=== PATIENT | male | born 1985 | race Caucasian/White ===

== ENCOUNTER 2022-12-06 19:40 | Inpatient (IN) | payer BC, SELFPAY ==
[2022-12-06] VITALS (11 sets, daily range): BP systolic 109–159; BP diastolic 68–94; PULSE 99–115; RESP 23–31; TEMP 37.3; O2SAT 94–100
--- NOTE | ~2022-12-06 | XR_ITS ---
EXAMINATION: XR chest 1V portable DATE: 12/06/2022 20:01 INDICATION: Pneumonia. TECHNIQUE: A single frontal view of the chest was obtained on 2 radiographs. COMPARISON: None. FINDINGS: There are lucencies in right upper lobe, consistent with emphysema. There are airspace opac ities in left lower lung zone. No pleural effusion or pneumothorax. The heart size is normal. IMPRESSION: 1. Airspace opacities in left lower lung zone, consistent with atelectasis versus pneumonia. 2. Emphysema. Reviewed, dictated and finalized at location E. IMPRESSION: 1. Airspace opacities in left lower lung zone, consistent with atelectasis vers us pneumonia. 2. Emphysema.
--- NOTE | 2022-12-06 19:39 | ECG_ITS ---
Measurements Intervals [place] Rate: 115 P: 56 AK: 122 QRS: 90 QRSD: 81 T: 57 QT: 315 QTc: 436 Interpretive Statements SINUS TACHYCARDIA ATRIAL PREMATURE COMPLEX BASELINE ARTIFACT- I, II, III, AVL ABNORMAL ECG NO PREVIOUS ECG AVAILABLE FOR COMPARISON Electronically Signed On 12-11-2022 14:57:55 CDT by Kevin Rodrigues D.O.
[2022-12-06] MEDS: IPRATROPIUM BR 0.02% INH SOLN 0.5 MG/2.5 ML VIAL 1 MG INHALATION (19:58)
[2022-12-06] MEDS: ALBUTEROL SULFATE NEB 2.5 MG/3 ML INH 10 MG INHALATION (19:58)
[2022-12-06 20:16] LABS: Glucose Point of Care 135 mg/dl (65-105)
[2022-12-06 20:18] LABS: Basophils Absolute Auto 0.1 K/mm3 (0.0-0.1); Basophils Percent Auto 0.7 % (0.2-1.2); Eosinophils Percent Auto 0.2 % (0-4.4); Hematocrit 48.5 % (42.0-52.0); Hemoglobin 15.7 g/dL (14.0-18.0); Immature Granulocyte Absolute 0.71 K/mm3 (0.00-0.031); Immature Granulocyte Percent A 4.7 % (0-0.5); Lymphocytes Absolute Auto 2.62 K/mm3 (0.9-3.2); Lymphocytes Percent Auto 17.2 % (18.3-44.2); Mean Corpuscular HGB Conc 32.4 g/dl (32-36); Mean Corpuscular Hemoglobin 31.9 pg (26-34); Mean Corpuscular Volume 98.6 fl (80-100); Monocytes Absolute Auto 1.2 K/mm3 (0.1-0.6); Monocytes Percent Auto 7.6 % (2.6-8.5); Neutrophils Absolute Auto 10.6 K/mm3 (1.3-6.7); Neutrophils Percent Auto 69.6 % (45.5-73.1); Nucleated Red Blood Cells Absolute Auto 0.1 K/mm3 (0.0-0.012); Nucleated Red Blood Cells Perc 0.4 % (0.0-0.2); Platelet Count Result 277 k/mm3 (150-375); Red Blood Count 4.92 M/mm3 (4.6-6.20); Red Cell Distribution Width 14.5 % (11.5-14.5); White Blood Count 15.2 K/mm3 (4.5-10.0)
[2022-12-06] MEDS: SODIUM CHLORIDE 0.9% IV 2,000 ML 999 ML IV CONT (20:23)
[2022-12-06] MEDS: CEFEPIME 2 GM/NS 50 ML 2 GM/50 ML BAG IVPB (20:25)
[2022-12-06 20:29] LABS: INR 0.9; Partial Thromboplastin Time 27.4 SECONDS (22.3-36.8)
[2022-12-06 20:30] LABS: Alanine Aminotransferase 63 U/L (6-50); Albumin Level 3.8 g/dL (3.5-5.1); Alkaline Phosphatase 75 U/L (38-126); Aspartate Amino Transferase 32 U/L (17-59); Bilirubin,Total 0.8 mg/dL (0.2-1.3); Blood Urea Nitrogen 20 mg/dL (9-20); Calcium 8.3 mg/dL (8.4-10.2); Carbon Dioxide > 40 mmol/L (22-30); Chloride 89 mmol/L (98-107); Estimated CRCL calculation 150 ml/min; Estimated Glomerular Filt Rate > 60; Glucose 132 mg/dL (65-110); Lipase 63 U/L (23-300); Magnesium 2.1 mg/dL (1.6-2.3); Potassium 3.6 mmol/L (3.4-5.0); Sodium 135 mmol/L (137-145)
[2022-12-06] MEDS: Please add drug allergy info to patient profile. 1 EACH XX (20:31)
[2022-12-06 20:41] LABS: NT Pro B Type Natriuretic Pept 840 pg/mL (19.9-100); Troponin I 0.018 ng/mL (0.000-0.034)
[2022-12-06 20:53] LABS: Influenza A QL RT-PCR Negative (Negative); Influenza B QL RT-PCR Negative (Negative); RSV RNA, RT-PCR Negative (Negative); SARS-CoV-2 RNA PCR Negative (Negative)
--- NOTE | 2022-12-06 21:06 | ED.GENADULT ---
HPI - General Adult General Chief complaint: Shortness of Breath/Dyspnea Stated complaint: DIFFICULTY IN BREATHING History of Present Illness HPI narrative: This is a 37-year-old male with bronchopulmonary dysplasia presenting for difficulty breathing. Patient says that he was placed in a hotel that smelled of mold proximally 1 week ago. He then was hospitalized in [place] for 2 days where he was treated for pneumonia. He was discharged on antibiotics and steroids, neither of which he filled or has taken. Patient called EMS for difficulty breathing today. He was found to be 42% on room air. He improved with 6 L nasal cannula. At this time the patient is denying any complaints outside of shortness of breath. Related Data Allergies Allergy/AdvReac Type Severity Reaction Status Date / Time No Known Allergies Allergy Verified 12/06/22 20:23 [facility] Past Medical History Medical History H/O bronchopulmonary dysplasia HTN (hypertension) Exam Narrative: APPEARANCE: appears uncomfortable Head: atraumatic. EYES: EOMI, NOSE: Atraumatic NECK: Trachea midline RESPIRATORY: Tachypneic, scattered wheezing, scattered rhonchi, end-expiratory grunting, CARDIOVASCULAR: RRR, no pitting edema ABDOMINAL: obese, nontender no guarding or rebound MUSCULOSKELETAl: No obvious deformities NEURO: Alert. Moving 4/4 extremities SKIN:: Warm, dry. Normal color PSYCHIATRIC: Normal affect Course Vital Signs Vital signs: Vital Signs Temperature 99.2 F 12/06/22 19:35 Pulse Rate 112 H 12/06/22 19:35 Respiratory Rate 31 H 12/06/22 19:35 Blood Pressure 159/94 H 12/06/22 19:35 Pulse Oximetry 94 12/06/22 19:35 Oxygen Delivery Nasal Cannula 12/06/22 19:35 Oxygen Flow Rate 4 12/06/22 19:35 Temperature 99.2 F 12/06/22 19:35 Pulse Rate 99 12/06/22 21:31 Respiratory Rate 30 H 12/06/22 21:31 Blood Pressure 109/68 12/06/22 21:31 Pulse Oximetry 100 12/06/22 21:31 Oxygen Delivery BiPAP 12/06/22 20:30 Oxygen Flow Rate 4 12/06/22 19:50 Medical Decision Making [facility] Narrative Medical decision making narrative: -Course: 37-year-old male with bronchopulmonary dysplasia presenting for shortness of breath after being diagnosed with pneumonia and not filling his antibiotics. On arrival patient was tachypneic with end-expiratory grunting. He is placed on BiPAP and given hour long DuoNeb treatment. Drip score 4. He will be started on cefepime azithromycin and vanco. Patient will be admitted the hospital for further management. 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 -Independent interpretation of studies: White count 15, metabolic panel shows a CO2 retention pattern. Initial troponin 0.018, BNP 840. Viral swabs negative. Chest x-ray shows left lower lobe pneumonia. Independent EKG interpretation: Rhythm [sinus], Rate [115], [place] -[normal], [place] -[normal], QRS [narrow], QTC [normal], T waves -[negative for concerning inversions], ST Segments - [Negative for concerning elevations] Final interpretations: sinus tachycardia -Discussion of Management/Consultants:Irina- Hospitalist -Interventions: BiPAP, 1 hour DuoNeb, 10 mg dexamethasone, cefepime, azithromycin, vancomycin, 2 L normal saline -Shared decision making / Disposition: patient will be admitted to the IMU for further management of his acute on chronic respiratory failure + PNA. Vital Signs Vital Signs: Vital Signs Temperature 99.2 F 12/06/22 19:35 Pulse Rate 112 H 12/06/22 19:35 Respiratory Rate 31 H 12/06/22 19:35 Blood Pressure 159/94 H 12/06/22 19:35 Pulse Oximetry 94 12/06/22 19:35 Oxygen Deliver
[2022-12-06] MEDS: AZITHROMYCIN 500 MG/NS 250 ML 500 MG/250 ML BAG 250 MG IVPB (21:09)
[2022-12-06 21:26] LABS: Appearance Urine Clear (Clear); Bacteria Urine None Seen /hpf; Bilirubin Urine Negative (Negative); Blood Urine Negative (Negative); Color Urine Yellow (Yellow); Glucose Urine UA Negative (Negative); Ketones Urine Negative (Negative); Leukocyte Esterase Ur Negative LEU/UL (Negative); Nitrate Urine Negative (Negative); Non Pathogenic Casts 0-2; Protein Urine Trace mg/dL (Negative); RBC Urine 0-2 /hpf (0-2); Squamous Epithelial Cell Urine None seen /hpf (Few); WBC Urine 0-5 /hpf; pH Urine 7.5 (5.0-9.0)
[2022-12-06 21:36] LABS: Add Urine Microscopic? YES
[2022-12-06 21:37] LABS: Amphetamine Screen Urine Negative (Negative); Barbiturate Screen Urine Negative (Negative); Benzodiazepines Screen Urine Negative (Negative); Cannabinoid Screen Urine Negative (Negative); Cocaine Screen Urine Negative (Negative); Methadone Screen Urine Negative (Negative); Opiate Screen Urine Negative (Negative); Phencyclidine Screen Urine Negative (Negative)
[2022-12-06] MEDS: VANCOMYCIN 1,250 MG/NS 250 ML 1,250 MG/250 ML BAG 166.67 MG IVPB (22:08)
[2022-12-06 22:51] LABS: Alveolar/Arterial O2 Gradient 128.1 mmHg; Base Excess ABG 11.5 mEq/l (+/-2.0); Fractional Inspired Oxygen 60 %; Oxygen Content ABG 21.2 %vol (16.0-22.0); Oxygen Saturation ABG 99.4 % (95.0-100.0); Oxyhemoglobin 95.1 % THb (90.0-100.0); PO2 ABG 224.1 mmHg (80.0-100.0); PO2 FiO2 Ratio Arterial Blood 3.74 %; Total Hemoglobin 15.5 g/dL (12.0-18.0); pH ABG 7.383 (7.350-7.450)
[2022-12-06 22:55] LABS: PCO2 ABG 68.7 mmHg (35.0-45.0)
[2022-12-06 22:56] LABS: Device NON-INVASIVE VENT; Modified Allen's Test Pass; Non-Invasive Vent Rate 12 /MIN; Site Drawn LEFT RADIAL
[2022-12-06 22:57] LABS: Non-Invasive Expiratory Pressure 5 CMH2O; Non-Invasive Inspiratory Pressure 15 CMH2O
[2022-12-07] VITALS (31 sets, daily range): BP systolic 125–150; BP diastolic 60–83; PULSE 59–105; RESP 14–30; TEMP 36.2–36.8; O2SAT 95–100; BMI 42.6
[2022-12-07 00:02] LABS: Troponin I 0.016 ng/mL (0.000-0.034)
[2022-12-07] MEDS: VANCOMYCIN 1,250 MG/NS 250 ML 1,250 MG/250 ML BAG 166.67 MG IVPB (00:49)
--- NOTE | 2022-12-07 01:57 | ADMGEN ---
This patient, Kelli Paredes, was admitted to IMU Room 210-01 on 12/07/2022 at 0135. Patient/family oriented to hospital policies and general routines including ID bracelet, bed and alarms, visiting hours, pain management, procedures, bathroom and other care routines, personal items, smoking policy, room service/diet, and visiting hours. Information on how to activate the Rapid Response Team has been discussed. Patient/Family are encouraged to report perceived risks to care and to ask questions if they do not understand what they are told or what they should do.
[2022-12-07] MEDS: IPRATROPIUM BR 0.02% INH SOLN 0.5 MG/2.5 ML VIAL INHALATION ×4 (02:13→20:25)
[2022-12-07] MEDS: ALBUTEROL SULFATE NEB 2.5 MG/3 ML INH INHALATION (02:13)
--- NOTE | 2022-12-07 04:00 | PC.NURSE ---
Patient uses [facility] [address], [address] [place] [address].
[2022-12-07] MEDS: CEFEPIME 2 GM/NS 50 ML 2 GM/50 ML BAG IVPB ×3 (05:46→21:03)
--- NOTE | 2022-12-07 05:54 | PM.IMHP ---
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 When EMS arrived to the patient's 0 tele satting 42% required 6 L nasal cannula to bring oxygen saturations up to the mid 90s. The patient was still having increased work of breathing on arrival to the ER was placed on BiPAP. The patient reports that he was just hospitalized at in [place] about a week ago. He thought that his respiratory symptoms at that time was due to being exposed to mold in the hotel. When he was admitted to the hospitalist told he had pneumonia he was kept for 2 days and then discharged. He reported that he felt like they were brushing him out of the hospital in felt that the antibiotics that they prescribed him in the steroids they prescribed him would not help. He stated that he was discharged urine 18:00 and was unable to pick the medications up from that pharmacy in left down without the medications. He stated that he did not want to pick them up anyway because he was commenced they would not help. His x-ray on arrival to the ER demonstrated left lower lobe atelectasis versus pneumonia. He had a mildly elevated temperature 99.2?. He had mild leukocytosis. He denies having any fevers or chills. At the time my evaluation the patient was profusely diaphoretic. He has a markedly crowded posterior oropharynx. He reports that when he was tested for sleep apnea about 20 years ago he did not have sleep apnea but he has not had a repeat sleep study since that time. He follows with a organ pipe maker metal in [facility] which was right across the [place] from his home in [place]. Cannot name his organ pipe maker metal. He states that his primary care physician is Hannah Wolf. Looking at his medication history it does not look like the patient has been refilling his medications on a regular basis. He states he has not been back to his home base in many months in his rarely at home. He has been having a nonproductive cough. He denies ever having smoked. He does chew tobacco on a daily basis. He denies any known recent ill contacts. Review of Systems Review of Systems: 12 systems were reviewed with pertinent positives and negatives per HPI. Except as documented in the HPI, all other systems were reviewed and are negative. [facility] Past Medical History Medical History Chewing tobacco nicotine dependence H/O bronchopulmonary dysplasia HTN (hypertension) Morbid obesity with BMI of 40.0-44.9, adult Surgical History Surgical History Status post open reduction with internal fixation of fracture (~2005) Facial fractures Family History Family History Father Hypertension Grandparent Diabetes mellitus Sibling Depression Social History Social History (Updated 12/07/22 @ 07:32 by Sylvia Arevalo DO) Social History: He is from [place]. He receives his medical care in [facility]. 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 He has been with his current girlfriend who is at bedside who is he refers to as his for the last 2 years. He denies illicit substance use. He never drinks alcohol. He is a lifelong nonsmoker. Code status: Full code Smoking status: Never smoker Smokeless tobacco user: chewing tobacco Alcohol intake: never Substance use: never Substance use type: does not use Lack of Transportation: No Lack of Food: Never True Current Housing: I Have Housing Concerned About Future Housing: No Difficulty Paying Gas/Electric Bills: No Difficulty Paying for Meds: No Currently Unemployed: No
[2022-12-07 06:02] LABS: Estimated CRCL calculation 148 ml/min; Estimated Glomerular Filt Rate > 60
[2022-12-07 07:41] LABS: Basophils Absolute Auto 0.1 K/mm3 (0.0-0.1); Basophils Percent Auto 0.6 % (0.2-1.2); Hematocrit 45.8 % (42.0-52.0); Hemoglobin 14.6 g/dL (14.0-18.0); Immature Granulocyte Absolute 0.64 K/mm3 (0.00-0.031); Immature Granulocyte Percent A 5.5 % (0-0.5); Lymphocytes Absolute Auto 1.11 K/mm3 (0.9-3.2); Lymphocytes Percent Auto 9.5 % (18.3-44.2); Mean Corpuscular HGB Conc 31.9 g/dl (32-36); Mean Corpuscular Hemoglobin 31.9 pg (26-34); Mean Corpuscular Volume 100.2 fl (80-100); Mean Platelet Volume 9.6 fl (7.4-10.4); Monocytes Absolute Auto 0.5 K/mm3 (0.1-0.6); Monocytes Percent Auto 3.8 % (2.6-8.5); Neutrophils Absolute Auto 9.4 K/mm3 (1.3-6.7); Neutrophils Percent Auto 80.6 % (45.5-73.1); Nucleated Red Blood Cells Perc 0.2 % (0.0-0.2); Platelet Count Result 266 k/mm3 (150-375); Red Blood Count 4.57 M/mm3 (4.6-6.20); Red Cell Distribution Width 14.2 % (11.5-14.5); White Blood Count 11.7 K/mm3 (4.5-10.0)
[2022-12-07 08:13] LABS: Blood Urea Nitrogen 18 mg/dL (9-20); Calcium 7.7 mg/dL (8.4-10.2); Carbon Dioxide > 40 mmol/L (22-30); Chloride 92 mmol/L (98-107); Estimated CRCL calculation 148 ml/min; Estimated Glomerular Filt Rate > 60; Glucose 195 mg/dL (65-110); Potassium 4.5 mmol/L (3.4-5.0); Sodium 134 mmol/L (137-145)
[2022-12-07] MEDS: ALBUTEROL SULFATE NEB 2.5 MG/3 ML INH 5 MG INHALATION ×3 (08:34→20:25)
[2022-12-07] MEDS: NEBIVOLOL HCL 5 MG TABLET 10 MG PO (09:21)
--- NOTE | 2022-12-07 09:21 | PM.IMPN ---
Progress Note: A&P Assessment and Plan (1) Pneumonia: Qualifiers: Laterality: left Lung location: lower lobe of lung Pneumonia type: due to unspecified organism Qualified Code(s): J18.9 - Pneumonia, unspecified organism Code(s): J18.9 - Pneumonia, unspecified organism Status: Acute (2) Respiratory failure, acute and chronic: Qualifiers: Respiratory failure complication: hypoxia and hypercapnia Qualified Code(s): J96.21 - Acute and chronic respiratory failure with hypoxia; J96.22 - Acute and chronic respiratory failure with hypercapnia Code(s): J96.20 - Acute and chronic respiratory failure, unspecified whether with hypoxia or hypercapnia Status: Acute (3) Sepsis: Qualifiers: Acute respiratory failure type: with hypoxia Sepsis acute organ dysfunction status: with acute organ dysfunction Sepsis type: sepsis due to unspecified organism Severe sepsis acute organ dysfunction type: acute respiratory failure Severe sepsis shock status: without septic shock Qualified Code(s): A41.9 - Sepsis, unspecified organism; R65.20 - Severe sepsis without septic shock; J96.01 - Acute respiratory failure with hypoxia Code(s): A41.9 - Sepsis, unspecified organism Status: Acute (4) Morbid obesity with BMI of 40.0-44.9, adult: Code(s): E66.01 - Morbid (severe) obesity due to excess calories; Z68.41 - Body mass index [BMI] 40.0-44.9, adult Status: Acute (5) Chewing tobacco nicotine dependence: Qualifiers: Substance use status: uncomplicated Qualified Code(s): F17.220 - Nicotine dependence, chewing tobacco, uncomplicated Code(s): F17.220 - Nicotine dependence, chewing tobacco, uncomplicated Status: Acute (6) HTN (hypertension): Qualifiers: Hypertension type: primary hypertension Qualified Code(s): I10 - Essential (primary) hypertension Code(s): I10 - Essential (primary) hypertension Status: Acute (7) H/O bronchopulmonary dysplasia: Code(s): Z87.09 - Personal history of other diseases of the respiratory system Status: Acute (8) Nonadherence to medical treatment: Code(s): Z91.199 - Patient's noncompliance with other medical treatment and regimen due to unspecified reason Status: Acute Plan Community-acquired pneumonia Patient has dyspnea, productive cough X-ray shows left lower lobe pneumonia Patient on cefepime, azithromycin and vancomycin Sepsis Sepsis criteria met with leukocytosis, tachypnea, tachycardia in the setting of pneumonia. The patient did have some lactic acidosis which is resolved. Patient was started on cefepime azithromycin and vancomycin per antibiotic stewardship guidelines for severe pneumonia. Blood cultures pending. Patient did receive Decadron in the ER for his acute respiratory failure. He has diffuse wheezing bilaterally. Was on BiPAP for several hours before ABG was obtained in the ER. Currently is ABG looks well compensated. There may have been acute component to his hypercapnic respiratory failure that may have resolved by the time the ABG was obtained. Will continue patient on steroid therapy with Solu-Medrol 60 mg q.8 hours. COPD exacerbation Patient has a history of emphysematous changes on imaging likely due to his history of bronchopulmonary dysplasia. This is likely playing a component in his hypercapnic respiratory failure. Possible superimposed with obesity hypoventilation syndrome and underlying obstructive sleep apnea he has not been tested for sleep apnea since he has gained significant amount of weight as an adult. Consult dental manager Migel as needed for edema but he denies history of heart failure. Follow echocardiogram Patient does use chewing tobacco on a daily basis. not interested in nicotine cessation information. He is not interested in nicotine supplements at this time. He has been informed that he cannot chew tobacco
[2022-12-07] MEDS: hydroCHLOROthiazide 25 MG TABLET PO (09:22)
[2022-12-07] MEDS: ZAFIRLUKAST 20 MG TABLET PO ×2 (09:22→17:42)
[2022-12-07] MEDS: methylPREDNISolone SOD SUCC 125 MG VIAL 60 MG IV PUSH ×2 (16:00→21:16)
[2022-12-07] MEDS: AZITHROMYCIN 500 MG/NS 250 ML 500 MG/250 ML BAG 250 MG IVPB (21:03)
[2022-12-07] MEDS: NYSTATIN 100,000 UNITS/ML SUSP 5 ML ORAL.SUSP PO (21:04)
[2022-12-08] VITALS (25 sets, daily range): BP systolic 121–141; BP diastolic 59–78; PULSE 56–104; RESP 18–24; TEMP 36.2–36.9; O2SAT 81–99
[2022-12-08] MEDS: ALBUTEROL SULFATE NEB 2.5 MG/3 ML INH 5 MG INHALATION ×4 (02:33→20:09)
[2022-12-08] MEDS: IPRATROPIUM BR 0.02% INH SOLN 0.5 MG/2.5 ML VIAL INHALATION ×4 (02:33→20:10)
[2022-12-08 05:43] LABS: Estimated CRCL calculation 128 ml/min; Estimated Glomerular Filt Rate > 60
[2022-12-08] MEDS: methylPREDNISolone SOD SUCC 125 MG VIAL 60 MG IM ×2 (06:34→17:36)
[2022-12-08] MEDS: ZAFIRLUKAST 20 MG TABLET PO (06:35)
--- NOTE | 2022-12-08 08:42 | PM.IMPN ---
Progress Note: A&P Assessment and Plan (1) Pneumonia: Qualifiers: Laterality: left Lung location: lower lobe of lung Pneumonia type: due to unspecified organism Qualified Code(s): J18.9 - Pneumonia, unspecified organism Code(s): J18.9 - Pneumonia, unspecified organism Status: Acute (2) Respiratory failure, acute and chronic: Qualifiers: Respiratory failure complication: hypoxia and hypercapnia Qualified Code(s): J96.21 - Acute and chronic respiratory failure with hypoxia; J96.22 - Acute and chronic respiratory failure with hypercapnia Code(s): J96.20 - Acute and chronic respiratory failure, unspecified whether with hypoxia or hypercapnia Status: Acute (3) Sepsis: Qualifiers: Acute respiratory failure type: with hypoxia Sepsis acute organ dysfunction status: with acute organ dysfunction Sepsis type: sepsis due to unspecified organism Severe sepsis acute organ dysfunction type: acute respiratory failure Severe sepsis shock status: without septic shock Qualified Code(s): A41.9 - Sepsis, unspecified organism; R65.20 - Severe sepsis without septic shock; J96.01 - Acute respiratory failure with hypoxia Code(s): A41.9 - Sepsis, unspecified organism Status: Acute (4) Morbid obesity with BMI of 40.0-44.9, adult: Code(s): E66.01 - Morbid (severe) obesity due to excess calories; Z68.41 - Body mass index [BMI] 40.0-44.9, adult Status: Acute (5) Chewing tobacco nicotine dependence: Qualifiers: Substance use status: uncomplicated Qualified Code(s): F17.220 - Nicotine dependence, chewing tobacco, uncomplicated Code(s): F17.220 - Nicotine dependence, chewing tobacco, uncomplicated Status: Acute (6) HTN (hypertension): Qualifiers: Hypertension type: primary hypertension Qualified Code(s): I10 - Essential (primary) hypertension Code(s): I10 - Essential (primary) hypertension Status: Acute (7) H/O bronchopulmonary dysplasia: Code(s): Z87.09 - Personal history of other diseases of the respiratory system Status: Acute (8) Nonadherence to medical treatment: Code(s): Z91.199 - Patient's noncompliance with other medical treatment and regimen due to unspecified reason Status: Acute Plan Community-acquired pneumonia Patient has dyspnea, productive cough X-ray shows left lower lobe pneumonia Patient on cefepime, azithromycin and vancomycin Sepsis Sepsis criteria met with leukocytosis, tachypnea, tachycardia in the setting of pneumonia. The patient did have some lactic acidosis which is resolved. Patient was started on cefepime azithromycin and vancomycin per antibiotic stewardship guidelines for severe pneumonia. Blood cultures pending. Patient did receive Decadron in the ER for his acute respiratory failure. He has diffuse wheezing bilaterally. Was on BiPAP for several hours before ABG was obtained in the ER. Currently is ABG looks well compensated. There may have been acute component to his hypercapnic respiratory failure that may have resolved by the time the ABG was obtained. Continue with Solu-Medrol 60 mg q.8 hours. Patient is afebrile, leukocytosis is trending down. COPD exacerbation Patient has a history of emphysematous changes on imaging likely due to his history of bronchopulmonary dysplasia. This is likely playing a component in his hypercapnic respiratory failure. Possible superimposed with obesity hypoventilation syndrome and underlying obstructive sleep apnea he has not been tested for sleep apnea since he has gained significant amount of weight as an adult. Consult fireproof door maker Migel as needed for edema but he denies history of heart failure. Follow echocardiogram Patient does use chewing tobacco on a daily basis. not interested in nicotine cessation information. He is not interested in nicotine supplements at this time. He has been informed that he
[2022-12-08] MEDS: NEBIVOLOL HCL 5 MG TABLET 10 MG PO (09:30)
[2022-12-08] MEDS: hydroCHLOROthiazide 25 MG TABLET PO (09:31)
[2022-12-08] MEDS: NYSTATIN 100,000 UNITS/ML SUSP 5 ML ORAL.SUSP PO ×4 (09:31→21:07)
[2022-12-08] MEDS: CEFEPIME 2 GM/NS 50 ML 2 GM/50 ML BAG IVPB ×2 (09:42→17:30)
--- NOTE | 2022-12-08 19:15 | PM.CNPUL ---
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 ABG 7.383, pCo2 68.7, pO2 224 on 60%, HCO3 40, sat 99%. Has underlying emphysema visible on CXR. He has Trelegy inhaler with him, one puff left in a container and another full one available. He has albuterol inhaler with him. (2) Pneumonia: Qualifiers: Laterality: left Lung location: lower lobe of lung Pneumonia type: due to unspecified organism Qualified Code(s): J18.9 - Pneumonia, unspecified organism Code(s): J18.9 - Pneumonia, unspecified organism Status: Acute Assessment and Plan: He has community acquired pneumonia, partially treated; this diagnosis is based on clinical and radiographic date; productive cough, shortness of breath, increased O2 requirement, admitted with saturation 46% with confusion, shock, increased lactic acid on admission Dec 06. He was managed with Decadron, BiPAP 15/5 and O2 @ 60% , weaned down to 1 L/min. WBC is decreasing, now 11.7 K. 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 He has POC in his truck, O2 concentrator at home, has a Trilogy NPPV at home, and likes the mask that he had here. He can take this home, use it with his Trilogy at home. Plan He is significantly improved, should be ready to go home tomorrow. His home is a [address] from here[address] His is going to drive. They have a portable O2 concentrator that has capability to go to 4-5 L/min. He has not been able to wean off O2 today; on room air 88%. He says he is 90% better compared to his condition at admission. His nurse attests to his improvement. He will comply with getting antibiotics and prednisone at a [facility] or other pharmacy before [facility] tomorrow to avoid repeat deterioration on the road. Goal with O2 is saturation 90-94% while using O2. He does not observe medical recommendations such as using O2 when needed, does not want to go on disability or take anything from the government. Has a pulmonary doctor at home. History of Present Illness History of Present Illness Consult date: 12/08/22 Chief complaint: PNA Narrative: Dec 08, 2022 18:40; history kindly supplemented by his , Lori, and his RN, Bo. The patient is not in the mood for an interview. NEW: Kelli Paredes is a 37 yo male never smoker with abnormal lung function due to bronchopulmonary dysplasia, born 3 months early; he was not disabled and did not have significant problems with his breathing until 2018 when he developed frequent pneumonia. At home in [place], he has O2 and Trilogy nppv. In the last year since receiving his Trilogy, he has only used it a handful of time. He does not like the large mask on his home machine. 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 He is from [place], was
[2022-12-08] MEDS: methylPREDNISolone SOD SUCC 125 MG VIAL 60 MG IV PUSH (21:02)
[2022-12-08] MEDS: AZITHROMYCIN 500 MG/NS 250 ML 500 MG/250 ML BAG 250 MG IVPB (21:08)
[2022-12-09] VITALS (16 sets, daily range): BP systolic 125–147; BP diastolic 67–72; PULSE 59–125; RESP 16–21; TEMP 36.8; O2SAT 83–99
[2022-12-09] MEDS: CEFEPIME 2 GM/NS 50 ML 2 GM/50 ML BAG IVPB (01:32)
[2022-12-09] MEDS: ALBUTEROL SULFATE NEB 2.5 MG/3 ML INH 5 MG INHALATION ×2 (02:32→08:34)
[2022-12-09] MEDS: IPRATROPIUM BR 0.02% INH SOLN 0.5 MG/2.5 ML VIAL INHALATION ×2 (02:32→08:35)
[2022-12-09] MEDS: methylPREDNISolone SOD SUCC 125 MG VIAL 60 MG IV PUSH (06:27)
[2022-12-09] MEDS: ZAFIRLUKAST 20 MG TABLET PO (06:28)
--- NOTE | 2022-12-09 08:31 | PM.DS ---
DS: Admitting Diagnosis Discharge Date today Admitting Diagnosis Pneumonia COPD exacerbation Sepsis Acute on chronic respiratory failure DS: Discharge Diagnosis Discharge Diagnosis (1) Sepsis: Qualifiers: Acute respiratory failure type: with hypoxia Sepsis acute organ dysfunction status: with acute organ dysfunction Sepsis type: sepsis due to unspecified organism Severe sepsis acute organ dysfunction type: acute respiratory failure Severe sepsis shock status: without septic shock Qualified Code(s): A41.9 - Sepsis, unspecified organism; R65.20 - Severe sepsis without septic shock; J96.01 - Acute respiratory failure with hypoxia Code(s): A41.9 - Sepsis, unspecified organism Status: Acute (2) Chewing tobacco nicotine dependence: Qualifiers: Substance use status: uncomplicated Qualified Code(s): F17.220 - Nicotine dependence, chewing tobacco, uncomplicated Code(s): F17.220 - Nicotine dependence, chewing tobacco, uncomplicated Status: Acute (3) Morbid obesity with BMI of 40.0-44.9, adult: Code(s): E66.01 - Morbid (severe) obesity due to excess calories; Z68.41 - Body mass index [BMI] 40.0-44.9, adult Status: Acute (4) Community acquired pneumonia due to influenza A virus: Code(s): J09.X1 - Influenza due to identified novel influenza A virus with pneumonia Status: Acute (5) COPD exacerbation: Code(s): J44.1 - Chronic obstructive pulmonary disease with (acute) exacerbation Status: Acute (6) Pneumonia: Qualifiers: Laterality: left Lung location: lower lobe of lung Pneumonia type: due to unspecified organism Qualified Code(s): J18.9 - Pneumonia, unspecified organism Code(s): J18.9 - Pneumonia, unspecified organism Status: Acute DS: Summary Hospital Course Hospital Course: Per H&P, 37-year-old male with a past medical history of 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 When EMS arrived to the patient's 0 tele satting 42% required 6 L nasal cannula to bring oxygen saturations up to the mid 90s.? The patient was still having increased work of breathing on arrival to the ER was placed on BiPAP.? The patient reports that he was just hospitalized at in [place] about a week ago.? He thought that his respiratory symptoms at that time was due to being exposed to mold in the hotel.? When he was admitted to the hospitalist told he had pneumonia he was kept for 2 days and then discharged.? He reported that he felt like they were brushing him out of the hospital in felt that the antibiotics that they prescribed him in the steroids they prescribed him would not help.? He stated that he was discharged urine 18:00 and was unable to pick the medications up from that pharmacy in left down without the medications.? He stated that he did not want to pick them up anyway because he was commenced they would not help.? His x-ray on arrival to the ER demonstrated left lower lobe atelectasis versus pneumonia.? He had a mildly elevated temperature 99.2?.? He had mild leukocytosis.? He denies having any fevers or chills.? At the time my evaluation the patient was profusely diaphoretic.? He has a markedly crowded posterior oropharynx.? He reports that when he was tested for sleep apnea about 20 years ago he did not have sleep apnea but he has not had a repeat sleep study since that time.? He follows with a postulant in [facility] which was right across the [place] from his home in [place].? Cannot name his postulant.? He states that his primary care physician is Hannah Wolf.? Looking at his medication history it does not look like the patient has been refilling his medications on a regular basis.? He states he has not been back to his home base in many months in his rarely at home. The following medication
[2022-12-09 09:39] LABS: Estimated CRCL calculation 146 ml/min; Estimated Glomerular Filt Rate > 60
--- NOTE | 2022-12-09 09:39 | HOMEO2EVAL ---
Evaluation was performed at [facility] Home Oxygen Evaluation RC: Home Oxygen (O2) Evaluation Start: 12/09/22 09:09 Freq: ONCE Status: Active Protocol: RPE Activity Type Activity Date Activity User E-sign Co-sign Detail Recorded Client Recorded Date Recorded By Document 12/09/22 09:15 CLC [email or web address] 12/09/22 09:39 CLC Document 12/09/22 09:18 CLC [email or web address] 12/09/22 09:39 CLC Document 12/09/22 09:20 CLC [email or web address] 12/09/22 09:39 CLC Document 12/09/22 09:22 CLC [email or web address] 12/09/22 09:39 CLC Document 12/09/22 09:24 CLC [email or web address] 12/09/22 09:39 CLC 12/09/22 12/09/22 12/09/22 09:15 09:18 09:20 Home O2 Evaluation [Oxygen] -Test Phase Resting Exercise Exercise -Oxygen Delivery Room Air Room Air Nasal Cannula -Oxygen Flow Rate (L/min) 2 [Pulse Oximetry] -Pulse Oximetry (90-100 %) 94 87 L 83 L [Pulse Rate] -Pulse Rate (60-100 beats/min) 114 H 118 H 125 H [Evaluation] -Activity Tolerance Excellent Excellent [Exercise] -Ambulation Distance (feet) 200 -Ambulation Distance (meters) 60.95 [Charges] -Treatment Charges O2 Evaluation - Inpatient 12/09/22 12/09/22 09:22 09:24 Home O2 Evaluation [Oxygen] -Test Phase Exercise Exercise -Oxygen Delivery Nasal Cannula Nasal Cannula -Oxygen Flow Rate (L/min) 4 5 [Pulse Oximetry] -Pulse Oximetry (90-100 %) 85 L 92 [Pulse Rate] -Pulse Rate (60-100 beats/min) 113 H 118 H [Evaluation] -Activity Tolerance Excellent Excellent [Exercise] -Ambulation Distance (feet) -Ambulation Distance (meters) [Charges] -Treatment Charges
--- NOTE | 2022-12-09 09:40 | PCRCNOTE ---
Home oxygen evaluation complete. Patient requires 5 liters per minute with exertion. Patient has home oxygen currently with unknown company from [place]. Dr. Paredes wanted patient to know liter flow for his home settings. No set up required. Patient and LUPE Soriano aware of requirements.
[2022-12-09 09:51] LABS: Vancomycin Trough 7.9 ug/mL (10.0-20.0)
[2022-12-09] MEDS: NEBIVOLOL HCL 5 MG TABLET 10 MG PO (09:54)
[2022-12-09] MEDS: hydroCHLOROthiazide 25 MG TABLET PO (09:55)
--- NOTE | 2022-12-09 10:38 | PM.PNPUL ---
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 ABG 7.383, pCo2 68.7, pO2 224 on 60%, HCO3 40, sat 99%. Has underlying emphysema visible on CXR. He has Trelegy inhaler with him, one puff left in a container and another full one available. He has albuterol inhaler with him. Plan He is significantly improved, should be ready to go home tomorrow. His home is a [address] from here[address] His is going to drive. They have a portable O2 concentrator that has capability to go to 4-5 L/min. He has not been able to wean off O2 today; on room air 88%. He says he is 90% better compared to his condition at admission. His nurse attests to his improvement.? He will comply with getting antibiotics and prednisone at a [facility] or other pharmacy before leaving [facility] tomorrow to avoid repeat deterioration on the road. Goal with O2 is saturation 90-94% while using O2. He does not observe medical recommendations such as using O2 when needed, does not want to go on disability or take anything from the government. Has a pulmonary doctor at home. 12/09/22: Patient states he is breathing back to his normal. He has a slight cough with faint clear phlegm and no hemoptysis. Room air saturations 98%. He is afebrile. From a pulmonary perspective patient is ready to be discharged on these pulmonary medications: Levaquin 750 mg p.o. q.day x7 days. Cefdinir 300 mg p.o. b.i.d. x7 days. Prednisone 40 mg p.o. q.day x3 days Trelegy 200 at 1 puff q.day Albuterol 2 puffs q.4 hours p.r.n. shortness of breath. DuoNebs q.4 hours p.r.n. shortness of breath or wheezing Zafirlukast 20 mg p.o. b.i.d. Oxygen no oxygen at rest and 5 L with activity for formal home O2 assessment done today. Trelegy noninvasive ventilator with supplemental oxygen as he has been doing previously. Follow-up with his private resident services manager at home. I told him to call his resident services manager to give them clinical updates and schedule an appointment that is propria it further clinical practice. Discussed with Dr Foss. Call with questions (2) Pneumonia: Qualifiers: Laterality: left Lung location: lower lobe of lung Pneumonia type: due to unspecified organism Qualified Code(s): J18.9 - Pneumonia, unspecified organism Code(s): J18.9 - Pneumonia, unspecified organism Status: Acute Assessment and Plan: 12/08 He has community acquired pneumonia, partially treated; this diagnosis is based on clinical and radiographic date; productive cough, shortness of breath, increased O2 requirement, admitted with saturation? 46% with confusion, shock, increased lactic acid on admission Dec 06. He was managed with Decadron, BiPAP 15/5 and O2 @ 60% , weaned down to 1 L/min. WBC is decreasing, now 11.7 K. 12/09 patient feels back to his normal. Currently on room air, afebrile. Will discharge on Levaquin and cefdinir to complete a total of 10 days antibiotics. (3) H/O bronchopulmonary dysplasia: Code(s): Z87.09 - Personal history of other diseases of the respiratory system Status: Acute Assessment and Plan: 12/08 This is attributed to premature 31 weeks, had problems in infancy; he grew out of his problems and had no issues until 2019 when he started having recurrent infections; he has been on diuretics for 10 years, uses Trelegy one puff a day and prn albuterol. He has POC in his truck, O2 concentrator at home, has a Trilogy NPPV at home,
== END 2022-12-09 10:24 | disposition home or self-care (01) | DRG 871 ==
LOC: ANHED 21:14 → ANHIMU 23:36
PROVIDERS: Admitting Provider Internal Medicine; Emergency Provider Emergency Medicine; Visit Provider Hospitalist
DX: A41.9 Sepsis, unspecified organism (principal); J18.9 Pneumonia, unspecified organism; J96.21 Acute and chronic respiratory failure with hypoxia; J96.22 Acute and chronic respiratory failure with hypercapnia; P27.1 Bronchopulmonary dysplasia originating in the perinatal period; Z68.41 Body mass index [BMI] 40.0-44.9, adult; J44.1 Chronic obstructive pulmonary disease with (acute) exacerbation; J44.0 Chronic obstructive pulmonary disease with (acute) lower respiratory infection; E66.2 Morbid (severe) obesity with alveolar hypoventilation; R65.20 Severe sepsis without septic shock; I10 Essential (primary) hypertension; F17.220 Nicotine dependence, chewing tobacco, uncomplicated; Z20.822 Contact with and (suspected) exposure to COVID-19; Z91.148 Patient's other noncompliance with medication regimen for other reason
CPT/HCPCS: 36415; 36600; 71045; 80048; 80053; 80202; 80307; 81001; 82565; 82805; 82948; 83605; 83690; 83735; 83880; 84484; 85025; 85610; 85730; 87040; 87081; 87637; 93005; 94002; 94618; 94640; 96365; 96367; 96375; 99285; A9270; J0456; J0692; J1100; J2930; J3370; J7030